=== PATIENT | male | born 1985 | race Caucasian/White ===

== ENCOUNTER 2017-02-21 17:57 | Inpatient (IN) | payer SELFPAY ==
[~2017-02-21] VITALS: Ht 182.9 cm; Wt 73.4 kg
[2017-02-21 18:08] VITALS: O2SAT 100
[2017-02-21 18:12] LABS: I-STAT POTASSIUM 3.3 MMOL/L (3.5-4.9)
[2017-02-21 18:17] LABS: AUTOMATED NEUTROPHIL # 6.3 TH/MM3 (1.8-7.7); BASOPHIL # 0.1 TH/MM3 (0-0.2); BASOPHIL % 0.6 % (0.0-2.0); EOSINOPHIL # 0.1 TH/MM3 (0-0.4); EOSINOPHIL % 0.5 % (0.0-4.0); HEMATOCRIT 41.5 % (39.0-51.0); HEMO FLAGS DIFF FINAL; LYMPH % 39.6 % (9.0-44.0); LYMPHOCYTE # 4.8 TH/MM3 (1.0-4.8); MEAN CELL VOLUME 91.6 FL (80.0-100.0); MEAN CORPUSCULAR HEMOGLOBIN 30.8 PG (27.0-34.0); MEAN CORPUSCULAR HGB CONC 33.6 % (32.0-36.0); MONO % 7.4 % (0.0-8.0); NEUT % 51.9 % (16.0-70.0); PLATELET COUNT 289 TH/MM3 (150-450); RED BLOOD COUNT 4.54 MIL/MM3 (4.50-5.90); RED CELL DISTRIBUTION WIDTH 12.5 % (11.6-17.2); WHITE BLOOD COUNT 12.2 TH/MM3 (4.0-11.0)
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
[2017-02-21 18:25] LABS: APTT (PATIENT) 27.3 SEC (24.3-30.1)
[2017-02-21] MEDS ORDERED: MORPHINE SULFATE 8 MG/ML INJ ONE (18:25)
[2017-02-21] MEDS ORDERED: ONDANSETRON HCL 4 MG/2 ML VIAL ONE (18:26)
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
[2017-02-21 18:39] VITALS: BP 133/89; PULSE 99; RESP 20; TEMP 98.3; O2SAT 100
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
[2017-02-21] MEDS ORDERED: IOHEXOL 350 MG/ML 10 ML VIAL (for RAD DIAG) IV ONE (18:51)
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
[2017-02-21] MEDS: LACTATED RINGER'S 1000 ML INJ 1,000 ML IV SCH (20:00)
[2017-02-21] MEDS ORDERED: SODIUM CHLORIDE 0.9% FLUSH 10 ML FLUSH IV FLUSH PRN (20:15)
[2017-02-21] MEDS ORDERED: CHLORHEXIDINE GLUCONATE 2 % 1 PACK (2 CLOTHS) TOP PRN (20:15)
[2017-02-21] MEDS ORDERED: MISCELLANEOUS NURSING INFORMATION XX SCH (20:15)
[2017-02-21] MEDS ORDERED: ONDANSETRON HCL 4 MG/2 ML VIAL IV PRN (20:15)
[2017-02-21] MEDS: HYDROmorphone HCL PF 1 MG/ML VIAL IVP PRN ×2 (20:32→22:57)
[2017-02-21] MEDS: DOCUSATE SODIUM 100 MG CAP PO SCH (21:00)
[2017-02-21] MEDS: DOCUSATE SODIUM 100 MG/10 ML UDC PO SCH (21:00)
[2017-02-21] MEDS ORDERED: BACITRACIN TOP OINT 15 GM TUBE TOPICAL SCH (21:00)
[2017-02-21] MEDS: ENOXAPARIN SODIUM 30 MG/0.3 ML SYRINGE SQ SCH (21:00)
[2017-02-21 21:18] VITALS: BP 143/76; PULSE 96; RESP 16; O2SAT 98
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
[2017-02-21 22:30] VITALS: BP 134/80; PULSE 84; RESP 20; TEMP 98.7; O2SAT 97
[2017-02-22] VITALS: BP 132/77; PULSE 79; RESP 24; TEMP 98.1; O2SAT 98
[2017-02-22] MEDS: HYDROmorphone HCL PF 1 MG/ML VIAL IVP PRN ×5 (02:04→14:42)
[2017-02-22 04:00] VITALS: BP 127/82; PULSE 72; RESP 22; TEMP 99.5; O2SAT 100
[2017-02-22] MEDS ORDERED: CHLORHEXIDINE GLUCONATE 2 % 1 PACK (2 CLOTHS) TOP SCH (04:00)
[2017-02-22] MEDS: LACTATED RINGER'S 1000 ML INJ 1,000 ML IV SCH ×2 (05:40→09:43)
[2017-02-22 07:45] VITALS: BP 121/75; PULSE 72; RESP 17; TEMP 97.9; O2SAT 100
[2017-02-22] MEDS: ENOXAPARIN SODIUM 30 MG/0.3 ML SYRINGE SQ SCH (07:55)
[2017-02-22] MEDS: DOCUSATE SODIUM 100 MG/10 ML UDC PO SCH (07:56)
[2017-02-22] MEDS: DOCUSATE SODIUM 100 MG CAP PO SCH (07:56)
[2017-02-22] MEDS ORDERED: KETOROLAC TROMETHAMINE 30 MG/ML (IVP) VIAL IV PUSH PRN (08:30)
[2017-02-22 08:40] LABS: BASOPHIL % 0.1 % (0.0-2.0); HEMATOCRIT 42.2 % (39.0-51.0); HEMO FLAGS DIFF FINAL; LYMPH % 6.9 % (9.0-44.0); LYMPHOCYTE # 1.4 TH/MM3 (1.0-4.8); MEAN CELL VOLUME 91.4 FL (80.0-100.0); MEAN CORPUSCULAR HEMOGLOBIN 31.2 PG (27.0-34.0); MEAN CORPUSCULAR HGB CONC 34.1 % (32.0-36.0); PLATELET COUNT 230 TH/MM3 (150-450); RED BLOOD COUNT 4.62 MIL/MM3 (4.50-5.90); RED CELL DISTRIBUTION WIDTH 12.6 % (11.6-17.2)
[2017-02-22 09:11] LABS: ALKALINE PHOSPHATASE 51 U/L (45-117); ALT (GPT) 27 U/L (12-78); ANION GAP 8 MEQ/L (5-15); AST (GOT) 34 U/L (15-37); BICARBONATE 30.5 MEQ/L (21.0-32.0); BLOOD UREA NITROGEN 5 MG/DL (7-18); CHLORIDE 99 MEQ/L (98-107); GLOMERULAR FILTRATION RATE 90 ML/MIN (>89); POTASSIUM 3.8 MEQ/L (3.5-5.1); SODIUM (NA) 137 MEQ/L (136-145); TOTAL BILIRUBIN ADULT 1.2 MG/DL (0.2-1.0)
[2017-02-22] MEDS: METHOCARBAMOL 500 MG TAB PO SCH ×2 (10:28→14:41)
[2017-02-22 11:35] VITALS: BP 123/82; PULSE 70; RESP 17; TEMP 99.7; O2SAT 99
[2017-02-22] MEDS ORDERED: PERI8.6T PO (11:59)
[2017-02-22] MEDS ORDERED: METH500T3 PO (11:59)
[2017-02-22] MEDS ORDERED: PERC5TAB12 PO (14:02)
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
== END 2017-02-22 15:45 | disposition home or self-care (01) | DRG 90 ==
LOC: NEPI 17:57 → EDBD 19:31 → NEDA 19:31 → N05B 22:25
PROVIDERS: ADMIT Surgery Trauma Surgery; ATTEND Surgery Trauma Surgery
PROC: 0HQ1XZZ Repair Face Skin, External Approach (ICD-10-PCS; principal; 2017-02-21)
PROC: 0HQ0XZZ Repair Scalp Skin, External Approach (ICD-10-PCS; 2017-02-21)
DX: S06.0X0A Concussion without loss of consciousness, initial encounter (principal); R40.2412 Glasgow coma scale score 13-15, at arrival to emergency department; F10.129 Alcohol abuse with intoxication, unspecified; S01.01XA Laceration without foreign body of scalp, initial encounter; S01.81XA Laceration without foreign body of other part of head, initial encounter; T14.8 Other injury of unspecified body region; V29.40XA Motorcycle driver injured in collision with unspecified motor vehicles in traffic accident, initial encounter; Y92.410 Unspecified street and highway as the place of occurrence of the external cause; Z72.0 Tobacco use
CPT/HCPCS: 12002; 12013; 70450; 70486; 71010; 71260; 72125; 72170; 74177; 80053; 82435; 82565; 82947; 84132; 84295; 84520; 85025; 85610; 85730; 86850; 86900; 86901; 96374; 96375; 99291; G0390; J0690; J1170; J1650; J2270; J2405; J3010; J7120; Q9967